=== PATIENT | female | born 2000 | race African-American/Black ===

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

== ENCOUNTER 2021-01-06 16:22 | Emergency (ER) | payer MEDICAID ==
[~2021-01-06] VITALS: Ht 154.9 cm; Wt 54.4 kg
[2021-01-06 17:29] VITALS: BP 120/79
[2021-01-06] MEDS ORDERED: LORazepam 2MG/ML-1ML VIAL IM ONE (17:30)
== END 2021-01-06 18:02 | disposition home or self-care (01) ==
LOC: ER 16:23
DX: F41.8 Other specified anxiety disorders (principal)
CPT/HCPCS: 93005; 96372; 99283; J2060

== ENCOUNTER 2021-06-14 16:28 | Emergency (ER) | payer MEDICAID ==
[~2021-06-14] VITALS: Ht 154.9 cm; Wt 58.1 kg
[2021-06-14 17:09] LABS: Urine Bacteria FEW /hpf (None Seen); Urine Blood Negative /uL (Negative); Urine Mucus FEW (None Seen); Urine Specific Gravity 1.014 (1.001-1.035); Urine WBC <1 /hpf (0 - 5)
[2021-06-14] MEDS ORDERED: [UNRECOGNIZED DRUG - CODE] PO (17:15)
[2021-06-14 17:42] VITALS: BP 140/80
== END 2021-06-14 17:45 | disposition home or self-care (01) ==
LOC: ER 16:28
DX: R10.84 Generalized abdominal pain (principal); B82.0 Intestinal helminthiasis, unspecified; F12.10 Cannabis abuse, uncomplicated
CPT/HCPCS: 74176; 81001

== ENCOUNTER 2021-07-09 01:58 | Emergency (ER) | payer MEDICAID ==
[~2021-07-09] VITALS: Ht 165.1 cm; Wt 54.9 kg
[~2021-07-09 01:58] MED LIST: [UNRECOGNIZED DRUG - CODE] PO
[2021-07-09 02:05] VITALS: BP 135/78
[2021-07-09 02:50] LABS: Basophils # (auto) 0 10 ^3/uL (0-0.2); Basophils % (auto) 0.5 % (0.0-2.0); Eosinophils # (auto) 0.1 10 ^3/uL (0-0.8); Eosinophils % (auto) 0.9 % (0.0-7.0); Hematocrit 42.7 % (36.0-46.0); Hemoglobin 14.7 g/dL (12.2-16.2); Lymphocytes # (auto) 1.8 10 ^3/uL (0.4-5.4); Lymphocytes % (auto) 24.5 % (10.0-50.0); Mean Corpuscular Hemoglobin 30.9 pg (28.0-32.0); Mean Corpuscular Hgb Conc. 34.3 g/dL (32.0-36.0); Mean Corpuscular Volume 90.1 fL (80.0-100.0); Monocytes # (auto) 0.5 10 ^3/uL (0-1.3); Monocytes % (auto) 7.4 % (0.0-12.0); Neutrophils # (auto) 4.8 10 ^3/uL (1.6-8.6); Neutrophils % (auto) 66.7 % (37.0-80.0); Nucleated Red Blood Cells % 0.1 %; Red Blood Cells 4.74 10^6/uL (4.0-5.20); Red Cell Distribution Width 13.3 % (11.8-14.3); White Blood Cell 7.2 10^3/uL (4.4-10.8)
[2021-07-09 03:25] LABS: Albumin 3.9 g/dL (3.4-5.0); BUN/Creatinine Ratio 16.4; Calcium 9.4 mg/dL (8.5-10.1); Potassium 3.5 mmol/L (3.5-5.1)
[2021-07-09 03:27] LABS: Bilirubin, Total 0.7 mg/dL (0.2-1.0); Total Protein 7.5 g/dL (6.4-8.2)
== END 2021-07-09 04:41 | disposition left against medical advice (07) ==
LOC: ER 01:58 → EDBD 01:58 → ER 04:41
DX: R10.30 Lower abdominal pain, unspecified (principal); Z53.21 Procedure and treatment not carried out due to patient leaving prior to being seen by health care provider
CPT/HCPCS: 36415; 80053; 83690; 84702; 85025

== ENCOUNTER 2022-01-02 20:20 | Emergency (ER) | payer MEDICAID ==
[~2022-01-02] VITALS: Ht 154.9 cm; Wt 59.4 kg
[2022-01-02 20:25] VITALS: BP 125/81
[2022-01-02 22:00] LABS: Urine Bacteria FEW /hpf (None Seen); Urine Blood Negative /uL (Negative); Urine Mucus FEW (None Seen); Urine Specific Gravity 1.024 (1.001-1.035); Urine WBC 2 /hpf (0 - 5)
[2022-01-02 22:39] LABS: Basophils # (auto) 0.1 10 ^3/uL (0-0.2); Basophils % (auto) 0.9 % (0.0-2.0); Eosinophils # (auto) 0.3 10 ^3/uL (0-0.8); Eosinophils % (auto) 4.7 % (0.0-7.0); Hematocrit 37.2 % (36.0-46.0); Hemoglobin 12.4 g/dL (12.2-16.2); Lymphocytes # (auto) 1.9 10 ^3/uL (0.4-5.4); Lymphocytes % (auto) 32.9 % (10.0-50.0); Mean Corpuscular Hemoglobin 29.8 pg (28.0-32.0); Mean Corpuscular Hgb Conc. 33.3 g/dL (32.0-36.0); Mean Corpuscular Volume 89.4 fL (80.0-100.0); Monocytes # (auto) 0.5 10 ^3/uL (0-1.3); Monocytes % (auto) 9.3 % (0.0-12.0); Neutrophils % (auto) 52.2 % (37.0-80.0); Nucleated Red Blood Cells % 0.1 %; Red Blood Cells 4.16 10^6/uL (4.0-5.20); Red Cell Distribution Width 12.7 % (11.8-14.3); White Blood Cell 5.8 10^3/uL (4.4-10.8)
[2022-01-02 22:57] LABS: Albumin 3.6 g/dL (3.4-5.0); Calcium 8.2 mg/dL (8.5-10.1); Magnesium 2.1 mg/dL (1.6-2.6); Potassium 3.6 mmol/L (3.5-5.1)
[2022-01-02 23:03] LABS: BUN/Creatinine Ratio 17.4; Bilirubin, Total 0.5 mg/dL (0.2-1.0); Total Protein 6.7 g/dL (6.4-8.2)
== END 2022-01-02 23:40 | disposition left against medical advice (07) ==
LOC: ER 20:23
DX: R07.89 Other chest pain (principal); Z53.21 Procedure and treatment not carried out due to patient leaving prior to being seen by health care provider; Z20.822 Contact with and (suspected) exposure to COVID-19
CPT/HCPCS: 36415; 80053; 81001; 83735; 84484; 85025; 93005

== ENCOUNTER → 2022-01-03 | Emergency (ER) | payer MEDICAID | END | disposition left against medical advice (07) | LOC: ER 08:10 | DX: F41.9 Anxiety disorder, unspecified (principal); Z53.21 Procedure and treatment not carried out due to patient leaving prior to being seen by health care provider ==